=== PATIENT | female | born 1960 | race Hispanic/Latino ===

== ENCOUNTER 2021-04-23 05:37 | Day surgery (SDC) | payer BC ==
[2021-04-22 13:04] LABS: BASOPHILS % (AUTO) 0.2 % (0.0-5.0); EOSINOPHILS % (AUTO) 1.1 % (0.0-8.0); HEMATOCRIT 42.5 % (36-48); MEAN CORPUSCULAR HEMOGLOBIN 29.6 pg (27.0-33.0); MEAN CORPUSCULAR HGB CONC 32.2 g/dL (32.0-36.0); MEAN CORPUSCULAR VOLUME 91.8 fL (79-99); NEUTROPHILS % (AUTO) 62.5 % (40.0-77.0); PLATELET COUNT (AUTO) 324 K/uL (130-400); RED BLOOD CELL COUNT(AUTO) 4.63 MIL/uL (4.00-5.50); RED CELL DISTRIBUTION WIDTH 13.7 % (11.0-15.5); WHITE BLOOD COUNT (AUTO) 6.3 K/uL (4.8-10.8)
[2021-04-22 15:12] VITALS: BP 143/100
[2021-04-23] VITALS (18 sets, daily range): BP systolic 127–167; BP diastolic 72–93
[~2021-04-23] VITALS: Ht 157.5 cm; Wt 81.6 kg
[~2021-04-23 05:37] MED LIST: ATOR20TA65 PO; LOSA1TAB37 PO
[2021-04-23] MEDS: LACTATED RINGERS 1000ML 1,000 ML IV SCH ×2 (06:04→08:09)
[2021-04-23] MEDS ORDERED: DEXAMETHASONE SOD PHOSPHATE 10MG/ML 1ML VIAL ONE (06:54)
[2021-04-23] MEDS ORDERED: LIDOCAINE PF 100MG/5ML (2%) SYRINGE 5ML ONE (06:54)
[2021-04-23] MEDS ORDERED: SUCCINYLCHOLINE CHLORIDE 20 MG/ML 10 ML VIAL ONE (06:54)
[2021-04-23] MEDS ORDERED: PROPOFOL 10 MG/ML 20ML VIAL IV ONE (06:55)
[2021-04-23] MEDS ORDERED: MIDAZOLAM HCL 1 MG/ML 2ML VIAL ONE (06:55)
[2021-04-23] MEDS ORDERED: ONDANSETRON 4MG INJ ONE (06:55)
[2021-04-23] MEDS ORDERED: NEOSTIGMINE 5MG/5ML SYR IV ONE (06:55)
[2021-04-23] MEDS ORDERED: FENTANYL CITRATE PF 50 MCG/1 ML 2ML VIAL ONE (06:55)
[2021-04-23] MEDS ORDERED: ROCURONIUM 10MG/1ML SYR 10 MG/ML ML ONE (06:55)
[2021-04-23] MEDS ORDERED: GLYCOPYRROLATE 1 MG/5 ML SYRINGE ONE (06:55)
[2021-04-23] MEDS ORDERED: MEPERIDINE-PF 25 MG/ML SYG ONE ×2 (06:58→08:29)
[2021-04-23] MEDS ORDERED: OCTYL 2-CYANOACRYLATE 1 EACH TP ONE (07:45)
== END 2021-04-23 10:10 | disposition home or self-care (01) ==
LOC: DAH 05:37
PROVIDERS: ATTEND Obstetrics & Gynecology
DX: N83.201 Unspecified ovarian cyst, right side (principal); N80.9 Endometriosis, unspecified; G89.29 Other chronic pain; N73.6 Female pelvic peritoneal adhesions (postinfective); I10 Essential (primary) hypertension; E78.00 Pure hypercholesterolemia, unspecified; Z90.710 Acquired absence of both cervix and uterus; G47.30 Sleep apnea, unspecified; Z99.89 Dependence on other enabling machines and devices
CPT/HCPCS: 36415; 58661; 58662; 85025; 86850; 86900; 86901; 87426; A4215 ×2; A4221; A4222; A4223; A4344; A4600; A4606; A4649 ×4; A4663; C1769 ×3; J0330; J1100; J2001; J2175 ×2; J2250; J2405; J2704; J2710; J3010; J3490; J7030; J7120

== ENCOUNTER 2024-02-17 05:51 | Day surgery (SDC) | payer BC ==
[~2024-02-17] VITALS: Ht 157.5 cm; Wt 72.6 kg
[2024-02-17] VITALS (11 sets, daily range): BP systolic 97–130; BP diastolic 51–74; PULSE 51–67; RESP 12–17
[~2024-02-17 05:51] MED LIST changes: +LOSA100T59 PO; -LOSA1TAB37 PO
[2024-02-17] MEDS: 0.9%NACL 1000ML 1,000 ML IV ONE (06:37)
[2024-02-17] MEDS ORDERED: PROPOFOL 1000 MG/100 ML 100 ML IV ONE (08:03)
== END 2024-02-17 09:40 | disposition home or self-care (01) ==
LOC: DAH 05:51
PROVIDERS: ATTEND Internal Medicine Gastroenterology
DX: K59.04 Chronic idiopathic constipation (principal); K63.5 Polyp of colon; K29.50 Unspecified chronic gastritis without bleeding; K76.0 Fatty (change of) liver, not elsewhere classified; R12 Heartburn; M19.90 Unspecified osteoarthritis, unspecified site; E78.00 Pure hypercholesterolemia, unspecified; Z86.010 Personal history of colon polyps; Z83.3 Family history of diabetes mellitus; Z80.3 Family history of malignant neoplasm of breast; Z90.710 Acquired absence of both cervix and uterus; Z98.891 History of uterine scar from previous surgery
CPT/HCPCS: 43239; 45380; J7030 ×2; J2704; A4620; A4215; A4223; A7002; A4222; A4221; A4663; A4606

== ENCOUNTER → 2024-10-25 | Outpatient (CLI) | payer BC ==
--- NOTE | 2024-10-25 21:00 | HMCSR ---
APPROVED REPORT EXAM: Two-dimensional and M-mode echocardiogram with Doppler and color Doppler. INDICATION ICD: R01.1 Cardiac murmur, unspecified 2D Dimensions RVDd3.6 cmLVEF(%)44.3 (>50%)LVED Vol(simp.)100.0 mL IVSd0.8 (0.7-1.1cm)FS(%)22 %LVES Vol(simp.)55.0 mL LVDd5.7 (3.8-5.6cm)Ao Root(2D)3.3 (2.0-3.7cm)LVEF(%, simp.)45 % PWd0.9 (0.7-1.1cm)LVOT diam2.3 (1.8-2.4cm)LA ESV INDEX (BP)28.10 mL/m2 LVDs4.5 (2.5-4.0cm)IVC diam1.6 cm Aortic Valve AoV Vmax1.6 m/[place] Peak GR10.7 mmHgLVOT Vmax0.7 m/s AoV VTI0.4 mAo Mean GR6.1 mmHgLVOT VTI0.17 m TROY (VMAX)2.0 cm2AVA (VTI) 2.0 cm2 Mitral Valve MV E Vmax61.3 cm/sDECEL Bnud552 ms MV A Vmax72.3 cm/sP 1/2 T55 ms E/A ratio0.8MVA (PHT)4.0 cm2 MR Max PG54 mmHg TDI E/E' [id number]/E' [id number] Pulmonary Valve PV Vmax0.9 m/sPV VTI0.23 mPV Mean GR2 mmHg PV Peak GR3.0 mmHgPI End Cher. James 1.1 cm/s Tricuspid Valve TR Vmax2.6 m/sRAP (EST) 3 utAqPQHH51.7 mmHg TR Peak GR26.7 mmHg Left Ventricle The left ventricle is mildly dilated. Global hypokinesia There is normal left ventricular wall thickn ess. LVEF is 40-45%. Grade 1 diastolic dysfunction Right Ventricle The right ventricle is normal size. The right ventricular systolic function is normal. Atria The left atrium is moderately dilated. The right atrium size is normal. Aortic Valve Aortic valve is trileaflet. Aortic valve leaflets are sclerotic but open well. Trace aortic regurgita tion. There is no aortic valvular stenosis. Mitral Valve The mitral valve is mildly thickened. Mitral regurgitation is trace. There is no mitral valve stenosi s. Tricuspid Valve The tricuspid valve leaflets appear normal. There is trace to mild tricuspid regurgitation. Right jose tricular systolic pressure is estimated at 30 mmHg. Pulmonic Valve The pulmonic valve leaflets are thin and pliable; valve motion is normal. There is trace pulmonic mariann vular regurgitation. Great Vessels The aortic root is normal in size. The IVC is normal in size and collapses >50% with inspiration. Pericardium No pericardial effusion. Conclusion LVEF is 40-45%. Grade 1 diastolic dysfunction
== END | disposition home or self-care (01) ==
LOC: SHCH 13:13
PROVIDERS: ATTEND Internal Medicine Cardiovascular Disease
DX: I08.3 Combined rheumatic disorders of mitral, aortic and tricuspid valves (principal); R01.1 Cardiac murmur, unspecified
CPT/HCPCS: 93306